=== PATIENT | male | born 1940 | race Caucasian/White ===

== ENCOUNTER 2018-10-10 15:26 | Emergency (ER) | payer MEDICARE, OTHER ==
--- NOTE | 2018-10-10 16:04 | ERPHSYRPT ---
- History of Present Illness Time Seen by Provider: 10/10/18 15:59 Source: patient, family Exam Limitations: no limitations Physician History: The patient is a 78-year-old male with his family and planing of feeling short of breath when he woke up today. He just wasn't feeling well. He denies chest pain. He denies nausea or vomiting. He denies fever or chills. He denies cough. Pt fell at home today. Pt fell backwards, hitting his backside on a carpeted floor. His past medical history is significant for CAD, [place] 3, cardiac stent placement 3, HTN, BPH, DM, hypothyroidism, GERD, and high cholesterol. Timing/Duration: today Activities at Onset: sleep Severity of Dyspnea-Max: moderate Severity of Dyspnea-Current: moderate Possible Cause: chronic episodes Modifying Factors: Improves With: nothing Associated Symptoms: No chest pain/discomfort, No wheezing Allergies/Adverse Reactions: acetaminophen [From Vicodin] Allergy (Unknown, Verified 10/10/18 16:02) Hives hydrocodone bitartrate [From Vicodin] Allergy (Unknown, Verified 10/10/18 16:02) Hives Antihistamines - Alkylamine Allergy (Verified 10/10/18 16:02) Sulfa (Sulfonamide Antibiotics) [Sulfa(Sulfonamide Antibiotics)] Allergy ( Verified 10/10/18 16:02) losartan [Losartan] Adverse Reaction (Unknown, Verified 10/10/18 16:02) kidney failure lisinopril Adverse Reaction (Verified 10/10/18 16:02) Home Medications: Atorvastatin Calcium [Lipitor] 80 mg PO DAILY 07/04/15 [History] Carvedilol 12.5 mg [Coreg 12.5 mg] 12.5 mg PO BID 07/04/15 [History] Clopidogrel Bisulfate 75 mg [PLAVIX 75 MG Tablet] 75 mg PO DAILY 07/04/15 [History] Hydralazine HCl 25 mg PO TID 07/04/15 [History] Isosorbide Mononitrate 30 mg [Imdur 30 MG] 30 mg PO DAILY 07/04/15 [History ] Memantine HCl 5 mg [Namenda 5 MG] 5 mg PO BID 07/04/15 [History] Metformin HCl 500 mg [Glucophage 500 MG] 500 mg PO HS 07/04/15 [History] Sitagliptin Phosphate 50 MG [Januvia 50 MG] 50 mg PO HS 07/04/15 [History] HydrALAzine HCL 25 MG TAB [Apresoline 25 MG TABLET] 25 mg PO BID 07/22/15 [History] Hydralazine HCl 50 mg PO HS 07/22/15 [History] Multivitamin [Multivitamins] 1 each PO DAILY 07/22/15 [History] Cheraw-3 Fatty Acids/Fish Oil [Cheraw-3 1,000 mg Softgel] 1 each PO DAILY [History] Sucralfate 1 gm [Carafate 1 GM] 1 gm PO TID 07/22/15 [History] Vitamin B Complex [Super B Complex] 1 each PO DAILY 07/22/15 [History] Levothyroxine Sodium [Tirosint] 150 mcg PO 10/10/18 [History] Sitagliptin Phosphate 50 MG [Januvia 50 MG] 50 mg PO DAILY 10/10/18 [ History] Hx Tetanus, Diphtheria Vaccination/Date Given: No Hx Influenza Vaccination/Date Given: Yes (2011) Hx Pneumococcal Vaccination/Date Given: No - Review of Systems Constitutional: No Fever, No Chills Eyes: No Symptoms Ears, Nose, & Throat: No Symptoms Respiratory: Dyspnea, Dyspnea on Exertion ([place]) Cardiac: No Chest Pain, No Edema, No Syncope Abdominal/Gastrointestinal: No Abdominal Pain, No Nausea, No Vomiting, No Diarrhea Genitourinary Symptoms: No Dysuria Musculoskeletal: No Back Pain, No Neck Pain Skin: No Rash Neurological: No Dizziness, No Focal Weakness, No Sensory Changes Psychological: No Symptoms Endocrine: No Symptoms Hematologic/Lymphatic: No Symptoms Immunological/Allergic: No Symptoms All Other Systems: Reviewed and Negative - Past Medical History Pertinent Past Medical History: Yes Neurological History: Dementia ENT History: Cataracts Cardiac History: Angina, High Cholesterol, Hypertension Respiratory History: No Pertinent History Endocrine Medical History: Diabetes Type I Musculoskeletal History: Arthritis, Osteoarthritis GI Medical History: GERD, Gallbladder Disease History: Other Psycho-Social History: Depression Male Reproductive Disorders: No Pertinent History - Past Surgical History Past Surgical History: Yes Neuro Surgical History: No Pertinent History Cardiac: Angioplasty, Cardiac Catheterization, Cardiac Stent, Other Respiratory: No Pertinent History Gastrointestinal: No Pertinent History Genitourinary: No Pertinent History Musculoskeletal: Orthopedic Surgery Male Surgical History: No Pertinent History Other Surgical History: states carpal tunnel syndrome land[place].,vertebrae replaced of neck 15yr ago,septal cardiac repair 2002,heart attack 2007, coronary vent system 2013,november 2014 kidney failure r/t medications and cholecystectomy, enlarged prostate surgery 2011 - Social History Smoking Status: Never smoker Exposure to second hand smoke: No Alcohol Use: None Drug Use: none Patient Lives Alone: No Significant Family History: no pertinent family hx - Nursing Vital Signs Nursing Vital Signs: Initial Vital Signs Pulse Rate 134 H 10/10/18 15:52 Respiratory Rate 22 10/10/18 15:52 Blood Pressure 114/84 10/10/18 15:52 O2 Sat by Pulse Oximetry 95 10/10/18 15:52 Pain Scale Pain Intensity 0 - Physical Exam General Appearance: mild distress Eye Exam: PERRL/EOMI Ears, Nose, Throat Exam: hearing grossly normal Neck Exam: normal inspection, supple Respiratory Exam: normal breath sounds Cardiovascular/Chest Exam: normal heart sounds, tachycardia, irregular Abdominal/Gastrointestinal Exam: soft, No tenderness, No distention, No mass Rectal Exam: not done Extremity Exam: non-tender, normal range of motion, normal inspection, no calf tenderness, no pedal edema Neurologic Exam: alert, oriented x 3, cooperative, prosthodontist II-XII nml as tested, sensation nml, No motor deficits Skin Exam: normal color, warm, No dry SpO2 Interpretation: normal - Course EKG Interpreted by Me: A-fib (with RVR), NORMAL AXIS - Radiology Exams Chest X-ray Interpretation: Interpreted by me, Negative (comp 2V chest 11/29/15.) Ordered Tests: Active Orders 24 hr Category Date Time Status Energy Analyst STAT Care 10/10/18 16:06 Active EKG-ER Only STAT Care 10/10/18 16:05 Active IV Insertion STAT Care 10/10/18 16:05 Active Oxygen-ED Only Nasal Cannula 2 lpm Care 10/10/18 16:05 Active Pulse Oximetry (ED) STAT Care 10/10/18 16:05 Active CHEST 1 VIEW (PORTABLE) Stat Exams 10/10/18 16:06 Taken HEAD WITHOUT CONTRAST [CT] Stat Exams 10/10/18 16:07 Ordered CBC W DIFF Stat Lab 10/10/18 15:45 Completed CMP Stat Lab 10/10/18 15:45 Received NT PRO BNP Stat Lab 10/10/18 15:45 Received TROPONIN Q3H Lab 10/10/18 15:45 Received TROPONIN Q3H Lab 10/10/18 19:15 Ordered TROPONIN Q3H Lab 10/10/18 22:15 Ordered TROPONIN Q3H Lab 10/11/18 01:15 Ordered TROPONIN Q3H Lab 10/11/18 04:15 Ordered Medication Summary Generic Name Dose Route Start Last Admin Trade Name Freq PRN Reason Stop Dose Admin Diltiazem HCl 20 mg 10/10/18 16:15 Diltiazem Hcl 25 Mg/5 Ml Vial IV 11/09/18 16:14 1XONLY GABY Sodium Chloride 1,000 mls @ 100 mls/hr 10/10/18 16:15 10/10/18 16:12 Sodium Chloride 0.9% 1000 Ml IV 11/09/18 16:14 100 mls/hr .Q10H GABY Administration Discontinued Medications Generic Name Dose Route Start Last Admin Trade Name Freq PRN Reason Stop Dose Admin Diltiazem HCl Confirm 10/10/18 16:10 Cardizem Iv 50 Mg/10 Ml Administered 10/10/18 16:11 Dose 50 mg IV .STK-MED ONE Ondansetron HCl 4 mg 10/10/18 16:05 10/10/18 16:12 Zofran 4 Mg/2 Ml Vial IV 10/10/18 16:06 4 mg STAT ONE Administration Ondansetron HCl Confirm 10/10/18 16:10 Zofran 4 Mg/2 Ml Vial Administered 10/10/18 16:11 Dose 4 mg .ROUTE .STK-MED ONE Lab/Rad Data: Laboratory Result Diagrams 10/10/18 15:45 Laboratory Results 10/10/18 Range/Units 15:45 WBC 12.2 H (4.0-10.5) K/mm3 RBC 5.39 (4.1-5.6) M/mm3 Hgb 16.5 (12.5-18.0) gm/dl Hct 48.6 (42-50) % MCV 90.2 (78-100) fl MCH 30.6 (26-32) pg MCHC 34.0 (32-36) g/dl RDW 12.8 (11.5-14.0) % Plt Count 237 (150-450) K/mm3 MPV 12.2 H (6-9.5) fl Gran % 71.4 H (36.0-66.0) % Eos # (Auto) 0.12 (0-0.5) Absolute Lymphs (auto) 2.58 (1.0-4.6) Absolute Monos (auto) 0.73 (0.0-1.3) Lymphocytes % 21.2 L (24.0-44.0) % Monocytes % 6.0 (0.0-12.0) % Eosinophils % 1.0 (0.00-5.0) % Basophils % 0.4 (0.0-0.4) % Absolute Granulocytes 8.70 H (1.4-6.9) Basophils # 0.05 (0-0.4) - Progress Progress: unchanged Progress Note: 10/10/18 17:18 The patient was given diltiazem 20 mg by IV. There was a mild decline in the heart rate initially but it has come back up to the 140s to 150s beats per minute. The blood pressure however has decreased significantly and the systolic is now less than 100. The patient has been given a normal saline IV bolus of greater than 500 mL and the systolic blood pressure remains below 100. I called Dr. Calle the patient's mill tender washing and explained the situation. The mill tender washing excepts transfer the patient to [facility]. Counseled pt/family regarding: diagnosis - Departure Time of Disposition: 17:19 Departure Disposition: Transfer (transfer to [facility] ER per Dr Easton) Clinical Impression: Atrial fibrillation with RVR Condition: Stable Critical Care Time: No Referrals: KALINA SANDOVAL [Primary Care Provider] -
[2018-10-10] MEDS ORDERED: Zofran 4 MG/2 ML VIAL IV ONE (16:05)
[2018-10-10] MEDS ORDERED: Cardizem IV 50 MG/10 ML IV ONE (16:10)
[2018-10-10] MEDS ORDERED: Zofran 4 MG/2 ML VIAL ONE (16:10)
[2018-10-10] MEDS ORDERED: Sodium Chloride 0.9% 1000 ML 1,000 ML ONE (16:11)
[2018-10-10] MEDS ORDERED: Sodium Chloride 0.9% 1000 ML 1,000 ML IV SCH (16:15)
[2018-10-10] MEDS ORDERED: DILTIAZEM HCL 25 MG/5 ML VIAL IV SCH (16:15)
[2018-10-10 16:28] LABS: BASOPHIL % 0.4 % (0.0-0.4); Basophil (Absolute #) 0.05 (0-0.4); Eosinophil (Absolute #) 0.12 (0-0.5); Granulocytes % 71.4 % (36.0-66.0); Hematocrit 48.6 % (42-50); Hemoglobin 16.5 gm/dl (12.5-18.0); Lymphocyte (Absolute #) 2.58 (1.0-4.6); Lymphocytes % 21.2 % (24.0-44.0); Mean Cell Volume 90.2 fl (78-100); Mean Corpuscular Hemoglobin 30.6 pg (26-32); Mean Platelet Volume 12.2 fl (6-9.5); Monocyte (Absolute #) 0.73 (0.0-1.3); Platelet Count 237 K/mm3 (150-450); Red Blood Count 5.39 M/mm3 (4.1-5.6); Red Cell Distribution Width 12.8 % (11.5-14.0); White Blood Count 12.2 K/mm3 (4.0-10.5)
[2018-10-10 17:39] LABS: ALBUMIN 4.6 g/dL (3.5-5.0); ANION GAP 17.3 MEQ/L (5-15); BILIRUBIN,TOTAL 1.5 mg/dL (0.2-1.3); Calcium 9.8 mg/dL (8.4-10.2); Creatinine 1 1.4 mg/dL (0.66-1.25); Potassium 4.5 mmol/L (3.5-5.1); Total Protein 7.8 g/dL (6.3-8.2)
[2018-10-10] MEDS ORDERED: Lanoxin 0.5 MG/2 ML INJECTION IV ONE (17:42)
[2018-10-10] MEDS ORDERED: Lanoxin 0.5 MG/2 ML INJECTION ONE (17:46)
[2018-10-10 17:52] VITALS: BP 96/65; PULSE 138; O2SAT 96
--- NOTE | 2018-10-10 19:43 | XRAY ---
Indication: Short of breath. Comparison: November 29, 2015. AP chest less inflated and remains clear with again incidental pulmonary and mediastinal calcified granulomas. Heart and mediastinal structures within normal limits. Bony thorax intact again with mild osteopenia and degenerative changes. Impression: Stable nonacute chest with chronic features.
== END 2018-10-10 18:14 | disposition short-term general hospital (02) ==
LOC: ED 15:26
DX: I48.91 Unspecified atrial fibrillation (principal); I25.10 Atherosclerotic heart disease of native coronary artery without angina pectoris; I25.2 Old myocardial infarction; Z98.61 Coronary angioplasty status; I10 Essential (primary) hypertension; E11.9 Type 2 diabetes mellitus without complications; E03.9 Hypothyroidism, unspecified; K21.9 Gastro-esophageal reflux disease without esophagitis; E78.00 Pure hypercholesterolemia, unspecified; N40.0 Benign prostatic hyperplasia without lower urinary tract symptoms; Z79.899 Other long term (current) drug therapy
CPT/HCPCS: 36000; 36415; 71045; 80053; 83880; 84484; 85025; 93005; 93041; 96360; 96374; 96375; 99285; J1160; J2405